=== PATIENT | female | born 1965 | race Caucasian/White ===

== ENCOUNTER 2022-10-15 01:02 | Emergency (ER) | payer SELFPAY ==
[~2022-10-15] VITALS: Ht 172.7 cm; Wt 82.7 kg
[~2022-10-15 01:02] MED LIST: MIRAPEX0.5 MG PO; NEURONTIN300 MG/CAP PO; NEXIUM 40MG40 MG; OXCARBAZEPINE300 M1 PO; ZYPREXA 5MG5 MG PO
[2022-10-15 02:29] LABS: BASO # 0.08 K/mm3 (0.02-0.10); EOS # 0.44 K/mm3 (0.04-0.40); EOS % 5.4 % (1.0-5.0); HEMATOCRIT 30.2 % (37.0-47.0); HEMOGLOBIN 9.8 g/dL (12.5-16.0); LYMPH# 2.32 K/mm3 (1.50-4.00); MEAN CELL VOLUME 90 fl (78-100); MEAN CORPUSCULAR HEMOGLOBIN 29 pg (27-31); MEAN CORPUSCULAR HGB CONC 33 g/dL (33-37); MEAN PLATELET VOLUME 9.1 fl (7.4-10.4); MONO # 0.54 K/mm3 (0.20-0.80); NEU # 4.83 K/mm3 (1.40-6.50); PLATELET COUNT 280 K/mm3 (130-400); RED BLOOD COUNT 3.37 M/mm3 (4.10-5.30); RED CELL DISTRIBUTION WIDTH 13.7 % (11.5-14.5); WHITE BLOOD COUNT 8.2 K/mm3 (4.8-10.8)
[2022-10-15 02:37] LABS: ALBUMIN 3.7 g/dL (3.5-5.0); POTASSIUM 4.1 mmol/L (3.5-5.1)
[2022-10-15 02:39] LABS: CALCIUM 9.2 mg/dL (8.3-10.5)
[2022-10-15 02:40] LABS: TOTAL PROTEIN 6.1 g/dL (6.4-8.3)
[2022-10-15 02:42] LABS: TOTAL BILIRUBIN 0.3 mg/dL (0.2-1.2)
[2022-10-15] MEDS ORDERED: MUCUS RELIEF1200 MG PO (04:01)
[2022-10-15] MEDS ORDERED: NEURONTIN400 M1 PO (04:02)
[2022-10-15] MEDS ORDERED: ZYPREXA 5MG5 MG PO (04:03)
[2022-10-15] MEDS ORDERED: ALEVE220 M1 PO (04:04)
[2022-10-15] MEDS ORDERED: FLUTICASON0.05 MG/AC NS (04:05)
[2022-10-15] MEDS ORDERED: ADVAIR DISKUS1 DS2 IH (04:05)
[2022-10-15] MEDS ORDERED: RT ALBUTEROL CC18 GM IH (04:07)
[2022-10-15] MEDS ORDERED: SYSTANE BALANCE10 M1 OP (04:07)
[2022-10-15 15:30] VITALS: BP 122/63
== END 2022-10-15 15:30 | disposition home or self-care (01) ==
LOC: ED 01:02
PROVIDERS: Physician Assistant
DX: R79.89 Other specified abnormal findings of blood chemistry (principal); F30.9 Manic episode, unspecified; I95.9 Hypotension, unspecified; R60.0 Localized edema; R07.9 Chest pain, unspecified; R06.02 Shortness of breath; Z20.822 Contact with and (suspected) exposure to COVID-19
CPT/HCPCS: J7030

== ENCOUNTER 2022-10-31 20:25 | Emergency (ER) | payer SELFPAY ==
[~2022-10-31] VITALS: Ht 172.7 cm; Wt 80.9 kg
[~2022-10-31 20:25] MED LIST changes: +ADVAIR DISKUS1 DS2 IH; +ALEVE220 M1 PO; +FLUTICASON0.05 MG/AC NS; +MUCUS RELIEF1200 MG PO; +NEURONTIN400 M1 PO; +RT ALBUTEROL CC18 GM IH; +SYSTANE BALANCE10 M1 OP
[2022-10-31] MEDS ORDERED: MIRAPEX0.5 MG PO ×2 (20:54→22:19)
[2022-10-31] MEDS ORDERED: NEXIUM 40MG40 MG PO (20:54)
[2022-10-31] MEDS ORDERED: REMERON15 MG PO (20:54)
[2022-10-31 21:45] LABS: URINE WBC 0 /hpf (0-3)
[2022-10-31 21:54] LABS: POTASSIUM 4.5 mmol/L (3.5-5.1)
[2022-10-31 21:55] LABS: CALCIUM 9.5 mg/dL (8.3-10.5)
[2022-10-31 21:57] LABS: URINE COLOR YELLOW
[2022-10-31 21:58] LABS: URINE APPEARANCE CLEAR; URINE BILIRUBIN NEGATIVE (NEGATIVE); URINE BLOOD NEGATIVE (NEGATIVE); URINE GLUCOSE NEGATIVE (NEGATIVE); URINE KETONE NEGATIVE (NEGATIVE); URINE LEUKOCYTE ESTERASE NEGATIVE (NEGATIVE); URINE NITRATE NEGATIVE (NEGATIVE); URINE PROTEIN(semi-quant) NEGATIVE (NEGATIVE); URINE UROBILINOGEN NORMAL (NORMAL)
[2022-10-31] MEDS ORDERED: HCTZ 25MG25 MG PO (22:19)
[2022-10-31 22:27] VITALS: BP 115/65
--- NOTE | 2022-11-06 10:12 | NUR ---
Pt called asking for more Mirapex to get her through until f/u with PCP 11/18. Told her I would speak with ER provider and get back to her, number she left was for beABLE in [place]. Order received and tried calling it into [facility] pharmacy where she wanted it sent, upon speaking with pharmacist at [facility] they stated that the patient is no longer allowed in [facility]. Tried to call pt back at number she provided and they stated that the patient has not been there all day and no one has seen her. Will await pt return call to clarify if it is okay to call perscription into [facility] instead.
== END 2022-10-31 22:30 | disposition disaster alternative care site (69) ==
LOC: ED 20:25
PROVIDERS: Family Medicine
DX: R60.0 Localized edema (principal); F31.9 Bipolar disorder, unspecified; F17.210 Nicotine dependence, cigarettes, uncomplicated; Z28.310 Unvaccinated for COVID-19

== ENCOUNTER 2024-07-01 15:47 | Emergency (ER) | payer MEDICAID ==
[~2024-07-01] VITALS: Ht 170.2 cm; Wt 90.9 kg
[~2024-07-01 15:47] MED LIST changes: +HCTZ 25MG25 MG PO; +NEXIUM 40MG40 MG PO; +REMERON15 MG PO
[2024-07-01] MEDS ORDERED: NEURONTIN300 M1 PO (16:22)
[2024-07-01] MEDS ORDERED: COLACE100 M1 PO (16:22)
[2024-07-01] MEDS ORDERED: PROTONIX TR40 M1 PO (16:23)
[2024-07-01] MEDS ORDERED: DEPAKOTE ER 25250 MG PO (16:24)
[2024-07-01] MEDS ORDERED: RISPERDAL4 M1 PO (16:24)
[2024-07-01] MEDS ORDERED: DESYREL 100MG100 MG PO (16:25)
[2024-07-01 16:38] LABS: BASO # 0.05 K/mm3 (0.02-0.10); EOS # 0.03 K/mm3 (0.04-0.40); EOS % 0.3 % (1.0-5.0); HEMATOCRIT 32.2 % (37.0-47.0); HEMOGLOBIN 10.8 g/dL (12.5-16.0); MEAN CELL VOLUME 84 fl (78-100); MEAN CORPUSCULAR HEMOGLOBIN 28 pg (27-31); MEAN CORPUSCULAR HGB CONC 34 g/dL (33-37); MEAN PLATELET VOLUME 9.7 fl (7.4-10.4); MONO # 0.85 K/mm3 (0.20-0.80); NEU # 7.31 K/mm3 (1.40-6.50); PLATELET COUNT 309 K/mm3 (130-400); RED BLOOD COUNT 3.85 M/mm3 (4.10-5.30); RED CELL DISTRIBUTION WIDTH 13.5 % (11.5-14.5); WHITE BLOOD COUNT 9.6 K/mm3 (4.8-10.8)
[2024-07-01 16:49] LABS: ALBUMIN 4.2 g/dL (3.5-5.0)
[2024-07-01 16:50] LABS: CALCIUM 9.3 mg/dL (8.3-10.5)
[2024-07-01 16:51] LABS: TOTAL PROTEIN 6.5 g/dL (6.4-8.3)
[2024-07-01 16:53] LABS: TOTAL BILIRUBIN 0.7 mg/dL (0.2-1.2)
[2024-07-01 17:25] VITALS: BP 122/61
== END 2024-07-01 17:30 | disposition home or self-care (01) ==
LOC: ED 15:47
PROVIDERS: Family Medicine
DX: R11.2 Nausea with vomiting, unspecified (principal); E87.1 Hypo-osmolality and hyponatremia; F17.200 Nicotine dependence, unspecified, uncomplicated